=== PATIENT | female | born 1975 | race Caucasian/White ===

== ENCOUNTER 2024-05-09 20:26 | Emergency (ER) | payer SELFPAY ==
[2024-05-09 20:29] VITALS: BP 156/112
--- NOTE | 2024-05-09 20:50 | ED.MUSCINJ ---
HPI-Injury
General
Chief Complaint: Musculo-Skeletal Complaint
Source: patient
Exam Limitations: none
Time Seen by Provider: 05/09/24 20:43
History of Present Illness-Injury
Is this injury a work related problem?: No
Is pt an associate of [facility]?: No
Initial Injury comments:
This is a 48 year old female that comes in with c/o left ankle pain. States that she was going down the steps and she must have missed the last step as she was trying to grab her dog. States that her left ankle twisted and went under her and she
fell on the left sided on the ground. States that she did not hit her head or have any LOC. Denies any fever, chills, nausea, vomiting, diarrhea, headache, dizziness.
Past History
Past History
ED Past Medical History: Hypothyroidism, Psychiatric (Anxiety/depression) and Other (PNA, H-Pylori)
ED Past Surgical History: Gynecological (Ruptured ectopic)
Social History
Tobacco: Non-smoker
Alcohol: Occasional
Drug: None
Personal:
Living: with family
Review of Systems
Review of Systems
All Other Systems: ROS reviewed and negative except as documented in HPI and ROS
Constitutional: Reports no symptoms; Denies fever or chills
EENT: Reports no symptoms
Respiratory: Reports no symptoms
Cardiac: Reports no symptoms
ABD/GI: Denies abdominal pain, nausea, vomiting or diarrhea
: Reports no symptoms
Musculoskeletal: Reports joint swelling (Left ankle swelling and pain)
Skin: Reports no symptoms
Neurological: Reports no symptoms; Denies dizzy or headache
Psychiatric: Reports no symptoms
Musculoskeletal Injury Exam
Musculoskeletal Injury Exam
Left Lateral Ankle:
Pain with Movement?: Mild
Tender to palpation?: Mild
Soft tissue swelling?: Moderate
External deformity and angulation?: None
Joint effusion?: None
Contusion?: None
Hematoma-local bleeding into tissue?: None
Strain- Sprain- Tear (Connective tissue injury)?: None
Crepitus with movement?: No
Joint instability?: No
Malalignment/deformity?: No
Range of motion: Limited (Due to pain)
Distal skin color and temperature: normal-warm & good color
Capillary Refill: normal
Phy Exam
General Physical Exam
General Presentation: well appearing and no apparent distress
General age: appears stated age
General Skin: warm and dry
General Habitus: normal
General Mental: alert
General Hydration: appears well hydrated
Eye Exam
Eye Exam: EOMI
Musculoskeletal Exam
Musculoskeletal Exam: joint swelling (Tenderness with palpation left lateral ankle, Pain with dorsal flexion. Negative for pain with planter flexion. )
Skin Exam
Skin Exam: normal color, warm/dry, no rash and no petechia
Psychiatric Exam
Psychiatric Exam: normal mood/affect
Injury Course
Orders/Labs/Results
Orders:
Orders
05/09/24 20:32
Ankle, left 3 view CR [CR Ankle - Left Min 3 Views ] Urgent
Comment:
Reason For Exam: fall, left ankle swelling, unable to bear weight
MDM/Problems Addressed
Differential Diagnosis Includes:
left ankle sprain, Ankle fracture
MDM/Problems Addressed:
This is a 48 year old female that comes in with c/o let ankle pain and swelling. States that she twisted her ankle when going down the steps as she missed the step as she was trying to get her dog.
Will get X-ray.
back to see patient. Explained that there are no fracture noted. This is most likely a sprain. Will give patietn Crutches. Cheko and air splint. Patient to rest and elevated. Ice to the ankle. Ibuprofen as needed for pain.
Chronic conditions affecting care:
NA
Acute Exacerbation and/or Progression of Chronic Illness:
NA
*Radiology
Radiology exam reviewed: preliminary read by ED provider (Left ankle- Negative for fractures. ) and radiology read reviewed (Left ankle- No findings to suggest recent cortical fracture.)
*Pulse Oximetry
Patient hypoxic: no
*EKG
Interpreted by ED Provider?: NA
Rate: EKG- N/A
*Support Clerk Interpretation
Rate: Support Clerk- N/A
*Critical Care Note
Total Time (30-74mins, 75-104mins- exclusive of procedures): Not Applicable
ED Attending Note
-
Portions of this chart may have been created with voice recognition software.� Occasional wrong word or��sound alike� substitutions may have occurred due to the inherent limitations of voice recognition software.
Discharge Plan
Departure
Patient Disposition: Home (Routine Discharge)
Date of Disposition: 05/09/24
Time of Disposition: 21:27
Patient with high blood pressure during this ER visit?: Yes
Condition: Good
Covid-19: Not Applicable
Discharge Problem:
Left ankle sprain
Instructions: How to Use Crutches, Ankle Sprain ED, Ankle air splint and elastic bandage, BLOOD PRESSURE, RICE Therapy
Prescriptions:
No Action
sertraline 100 MG tablet
200 mg PO DAILY
fexofenadine [Yeimi] 30 MG tablet
30 mg PO DAILY
levothyroxine 200 MCG tablet
300 mcg PO MOFR
acetaminophen 325 MG tablet
650 mg PO TIDPRN PRN (Reason: pain)
sulfamethoxazole-trimethoprim 1 TABLET tablet
1 tab PO BID
ranitidine HCl 150 MG tablet
150 mg PO DAILY
naproxen sodium [Aleve] 220 MG tablet
440 mg PO BIDPRN PRN (Reason: pain)
levothyroxine 200 MCG tablet
200 mcg PO SUTUWETHSA
Activity Restrictions/Additional Instructions:
As discussed, no fractures are noted on the X-ray. This is most likely a sprain. Please rest and elevated your foot. Ice to the ankle. Use the cheko and air splint until you can walk with out discomfort. Use the crutches as needed. IF YOU HAVE ANY
OTHER CONCERNS PLEASE RETURN TO THE EMERGENCY ROOM.
Interventions
Interventions:
*Risk Screen - Suicide Last Done: 05/09/24 20:29
*General Assessment Last Done: 05/09/24 20:29
*Neglect/Abuse Screening Last Done: 05/09/24 20:29
Discharge Date and Time
Print Language: BHUTANESE
[2024-05-09 22:04] VITALS: BP 130/81
== END 2024-05-09 22:05 | disposition home or self-care (01) ==
LOC: EMR 20:26
PROVIDERS: EMERGENCY PHYSICIAN Emergency Medicine; FAMILY PHYSICIAN Family Medicine
DX: S93.402A Sprain of unspecified ligament of left ankle, initial encounter (principal); X50.1XXA Overexertion from prolonged static or awkward postures, initial encounter; R03.0 Elevated blood-pressure reading, without diagnosis of hypertension; E03.9 Hypothyroidism, unspecified; F32.A Depression, unspecified; F41.9 Anxiety disorder, unspecified
CPT/HCPCS: 99283; 29515; 73610